=== PATIENT | female | born 1995 | race African-American/Black ===

== ENCOUNTER 2021-02-20 15:17 | Emergency (ER) | payer OTHER ==
[~2021-02-20] VITALS: Ht 165.1 cm; Wt 50.0 kg
[2021-02-20 15:42] VITALS: BP 172/99
[2021-02-20] MEDS ORDERED: DIPH,PERTUSS(ACELL),TET VAC/PF 0.5 ML SYRINGE. VAX IM ONE (16:00)
[2021-02-20] MEDS ORDERED: OFLO5DRO4 EACHEYE (16:12)
[2021-02-20] MEDS ORDERED: MUPI22OI2 TP (16:12)
[2021-02-20] MEDS ORDERED: CEPH500T PO (16:12)
--- NOTE | 2021-02-20 16:12 | PHYS DOC ---
Past Medical History Past Surgical History: Other Additional Past Surgical Histo: gallstone removal Smoking Status: Current Every Day Smoker Alcohol Use: Occasionally General Adult EDM: Chief Complaint: EYE PROBLEMS HPI: HPI: Patient is a 25 year old female who presents to the ED today with bilateral eye redness, swelling, yellow discharge from the right eye, symptoms began 3 days ago. Patient denies any vision loss. Patient is also complaining of crusty rash on the nose and upper lip, patient states it began as blisters 2 weeks ago then turned into crusty draining rashes a few days ago. Denies any fever. Review of Systems: Review of Systems: Constitutional: Denies fever or chills. [] Eyes: Reports bilateral eye redness, swelling, yellow drainage from the right e ye denies change in visual acuity. [] Musculoskeletal: Denies back pain or joint pain. [] Integument: Reports crusty rash on upper lip and the nose Neurologic: Denies headache, focal weakness or sensory changes. [] Psychiatric: Denies depression or anxiety. [] Heart Score: C/O Chest Pain: N/A Risk Factors: Risk Factors: DM, Current or recent (<one month) smoker, HTN, HLP, family history of CAD, obesity. Risk Scores: Score 0 - 3: 2.5% MACE over next 6 weeks - Discharge Home Score 4 - 6: 20.3% MACE over next 6 weeks - Admit for Clinical Observation Score 7 - 10: 72.7% MACE over next 6 weeks - Early Invasive Strategies Current Medications: Current Medications Medications (Trade) Dose Ordered Sig/Kvng Start Time Stop Time Status Last Admin Dose Admin Diphtheria/ Tetanus/Acell Pertussis (ADACEL TDap SYRINGE) 0.5 ml ONCE ONCE 02/20/21 16:00 02/20/21 16:01 DC Allergies: Allergies: Allergies Coded Allergies Type Severity Reaction Last Updated Verified No Known Drug Allergies 02/20/21 No Physical Exam: PE: Constitutional: Well developed, well nourished, no acute distress, non-toxic appearance. [] Eyes: PERRLA, EOMI, bilateral conjunctive are mildly injected right worse than left, slight swelling noted below the eyelids, yellow drainage from the right eye. Skin: Right upper lip and nose with a crusty yellow rash consistent with impetigo Back: No tenderness, no CVA tenderness. [] Extremities: No tenderness, no cyanosis, no clubbing, ROM intact, no edema. [] Neurologic: Alert and oriented X 3, normal motor function, normal sensory function, no focal deficits noted. [] Psychologic: Affect normal, judgement normal, mood normal. [] Current Patient Data: Vital Signs: Vital Signs Date Time Temp Pulse Resp B/P (MAP) Pulse Ox O2 Delivery O2 Flow Rate FiO2 02/20/21 15:42 98.6 68 16 172/99 (123) 99 Room Air 98.6 EKG: EKG: [] Radiology/Procedures: Radiology/Procedures: [] Course & Med Decision Making: Course & Med Decision Making Pertinent Labs and Imaging studies reviewed. (See chart for details) This is a 25-year-old female patient with bilateral bacterial conjunctivitis and impetigo to the nose and upper lip. Discharged on Bactroban ointment, ceph alexin for impetigo and ofloxacin for bilateral conjunctivitis. Provided return precautions. Tetanus updated. Mickey Disclaimer: Mickey Disclaimer: This electronic medical record was generated, in whole or in part, using a voice recognition dictation system. Departure Departure Impression: Primary Impression: Impetigo Additional Impression: Bacterial conjunctivitis of both eyes Disposition: HOME / SELF CARE / HOMELESS Condition: STABLE Patient Instructions: Bacterial Conjunctivitis, [id number], Impetigo Additional Instructions: You were evaluated in the emergency room for an eye infection and skin infection called impetigo. Please use the prescribed medications as ordered. Follow-up with your primary care doctor in 1 to 2 weeks. Maintain very good hand hygiene. Scripts Ofloxacin (Ofloxacin) 5 Ml Drops 1 DROP EACHEYE QID, #5 ML 0 Refills Prov: EMMAUVALDO Jacques REILLY 02/20/21 Mupirocin (MUPIROCIN OINTMENT) 22 Gm Oint...g. 1 MARY TP TID for WOUND CARE, #1 EACH Apply to sores on nose and upper lip Prov: UVALDO CARTER APRN 02/20/21 Cephalexin (CEPHALEXIN) 500 Mg Tablet 1 TAB PO TID, #30 TAB Prov: UVALDO CARTER APRN 02/20/21 EMMAUVALDO Jacques REILLY Feb 20, 2021 16:12
== END 2021-02-20 16:28 | disposition home or self-care (01) ==
LOC: ER 15:17
DX: H10.9 Unspecified conjunctivitis (principal); L01.00 Impetigo, unspecified; F17.200 Nicotine dependence, unspecified, uncomplicated
CPT/HCPCS: 90471; 90715; 99283